=== PATIENT | female | born 1985 | race Caucasian/White ===

== ENCOUNTER 2017-11-19 10:51 | Outpatient (CLI) | payer BC ==
--- NOTE | 2017-11-19 13:05 | ULT ---
OB ULTRASOUND: HISTORY: Size and dates. FINDINGS: A single live intrauterine gestation is seen with measurements corresponding to an estimated gestatio nal age of 21 weeks 1 day and LEANDRA at 03/31/18. The estimated weight measures 412 gm or 15 ounce s. measurements are as follows: BPD 4.99 cm, 21 weeks 1 day HC 19.17 cm, 21 weeks 3 days AC 16.19 cm, 21 weeks 2 days FL 3.56 cm, 21 weeks 2 days. The heart rate measures 141 b.p.m. Placenta is anteriorly and to the right without placenta pr evia. FLACA measures 14.7 cm. A 3-vessel cord, cord insertion, kidneys, bladder, stomach, heart, lateral ventricles, cerebell um, spine, lips/nose, and upper and lower extremities are visualized. No definite anomalies ar e seen. IMPRESSION: Single live intrauterine of 21 weeks 1 day estimated gestational age and estimated date of delivery at 03/31/18. POS: MELANI
== END 2017-11-19 10:52 | disposition home or self-care (01) ==
LOC: ULT 10:51
PROVIDERS: ATTEND Family Medicine
DX: Z34.92 Encounter for supervision of normal pregnancy, unspecified, second trimester (principal); Z3A.21 21 weeks gestation of pregnancy
CPT/HCPCS: 76805

== ENCOUNTER 2018-03-22 09:58 | Inpatient (IN) | payer BC ==
[2018-03-22] MEDS: Lactated Ringer's 1,000 ML IV SCH ×3 (10:40→19:07)
[2018-03-22] MEDS ORDERED: Ibuprofen 800 MG TAB PO PRN (10:51)
[2018-03-22] MEDS ORDERED: Ondansetron HCl/PF 4 MG/2 ML Vial IVP PRN ×2 (10:51→22:19)
[2018-03-22] MEDS ORDERED: NS w/ Oxytocin 10 units 500 ML IV SCH ×2 (10:51)
[2018-03-22] MEDS ORDERED: HYDROcodone/Acetaminophen 5/325 mg Tablet PO PRN (10:51)
[2018-03-22] MEDS ORDERED: Lidocaine 1% (PF) 30 ML VIAL SC PRN (10:51)
[2018-03-22] MEDS ORDERED: Misoprostol 200 MCG TAB PR PRN (10:51)
[2018-03-22] MEDS ORDERED: NS / Oxytocin 40 units/1000ml 1,000 ML IV PRN (10:51)
[2018-03-22] MEDS ORDERED: Promethazine HCl 25 MG/ML VIAL IM PRN (10:51)
[2018-03-22] MEDS ORDERED: Methylergonovine 0.2 MG/ML VIAL IM PRN (10:51)
[2018-03-22] MEDS ORDERED: Acetaminophen 500 MG TAB PO PRN (10:51)
[2018-03-22] MEDS ORDERED: Acetaminophen/Codeine 30-300mg Tablet PO PRN ×2 (10:51→22:19)
[2018-03-22] MEDS ORDERED: Butorphanol Tartrate 1 MG/ML VIAL SLOW IVP PRN (10:51)
[2018-03-22] MEDS ORDERED: Penicillin G Potassium 5 MILL.UNITS in Sodium Chloride 0.9% 100 ML IVPB SCH (11:00)
[2018-03-22 11:08] LABS: Hemoglobin 12.6 g/dL (12.0-16.0); Mean Corpuscular HGB CONC 34.3 g/dL (32.0-36.0); Mean Corpuscular Hemoglobin 31.3 pg (27.0-31.0); Mean Corpuscular Volume 91.2 fl (81.0-99.0); Mean Platelet Volume 7.7 fL (7.4-10.4); Platelet Count 217 thou/uL (130-400); RBC Distribution Width 15.7 % (11.5-14.5); Red Blood Cell (RBC) Count 4.04 mill/uL (4.20-5.40); White Blood Cell (WBC) Count 6.9 thou/uL (4.8-10.8)
[2018-03-22 11:50] LABS: HBSAg Index 0.12 S/CO (0-0.99); Hep B Surf Ag Non-Reactive S/CO (NonReactive)
[2018-03-22 11:52] LABS: Syphilis Antibody Nonreactive (Nonreactive); Syphilis Antibody Index 0.03 S/CO (<1.00 Non-Reactive)
[2018-03-22 12:35] VITALS: BMI 29.5
[2018-03-22] MEDS ORDERED: Bupivacaine 0.75% 13.4 ML, fentaNYL Citrate/PF 400 MCG in Sodium Chloride 0.9% 78.6 ML EPIDURAL SCH (14:45)
[2018-03-22] MEDS ORDERED: DISCONTINUE ALL PREVIOUS NARCOTICS FS SCH (14:45)
[2018-03-22] MEDS: Penicillin G 2.5 MILL.units 2.5 MILL.UNITS in Premix Bag 1 BAG IVPB SCH ×3 (15:06→19:07)
[2018-03-22] MEDS ORDERED: Lactated Ringer's 500 ML IV PRN (18:59)
[2018-03-22] MEDS ORDERED: ePHEDrine/0.9% NaCl/PF SYRINGE 50 mg/10 ml SLOW IVP PRN (18:59)
[2018-03-22] MEDS ORDERED: Eucerin (Mineral Oil/Petrolatum,White) 30 gm Jar TOP PRN (18:59)
[2018-03-22] MEDS ORDERED: Naloxone HCl 0.4 mg/ml Vial IVP PRN ×2 (18:59)
[2018-03-22] MEDS ORDERED: Communication Order-Pharmacy FS SCH (19:00)
[2018-03-22] MEDS ORDERED: Fentanyl 4mcg/Marcaine 0.1% Cassette 100 ML EPIDURAL SCH (19:00)
[2018-03-22] MEDS ORDERED: Bupivacaine 0.25% HCL 30 ML VIAL ONE (20:00)
[2018-03-22] MEDS ORDERED: Bisacodyl 10 MG SUPP PR PRN (22:19)
[2018-03-22] MEDS ORDERED: Milk Of Magnesia 30 ML UDCUP PO PRN (22:19)
[2018-03-22] MEDS ORDERED: diphenhydrAMINE 25 MG CAP PO PRN (22:19)
[2018-03-22] MEDS ORDERED: Lanolin Ointment 7 GM TUBE TOP PRN (22:19)
[2018-03-22] MEDS ORDERED: Preparation H Ointment 28 GM TUBE PR PRN (22:19)
[2018-03-22] MEDS ORDERED: Benzocaine/Menthol 20-0.5% 60 ML CAN TOP PRN (22:19)
[2018-03-22] MEDS ORDERED: NS / Oxytocin 40 units/1000ml 1,000 ML IV SCH (22:19)
[2018-03-22] MEDS ORDERED: Ferrous Sulfate 325 MG TAB PO SCH (22:30)
[2018-03-22] MEDS ORDERED: Ibuprofen 800 MG TAB PO SCH (22:30)
[2018-03-22] MEDS ORDERED: Docusate Calcium (SURFAK) 240 MG CAP PO SCH (22:30)
[2018-03-22] MEDS: Docusate Calcium (SURFAK) 240 MG CAP PO SCH ×2 (23:53→23:54)
[2018-03-23] MEDS: HYDROcodone/Acetaminophen 5/325 mg Tablet PO PRN ×2 (02:52→10:19)
[2018-03-23 05:25] LABS: Mean Corpuscular HGB CONC 34.4 g/dL (32.0-36.0); Mean Corpuscular Hemoglobin 31.2 pg (27.0-31.0); Mean Corpuscular Volume 90.7 fl (81.0-99.0); Mean Platelet Volume 7.5 fL (7.4-10.4); Platelet Count 202 thou/uL (130-400); RBC Distribution Width 15.5 % (11.5-14.5); Red Blood Cell (RBC) Count 3.84 mill/uL (4.20-5.40); White Blood Cell (WBC) Count 9.7 thou/uL (4.8-10.8)
[2018-03-23] MEDS: Ibuprofen 800 MG TAB PO SCH ×2 (06:16→13:56)
[2018-03-23] MEDS: Ferrous Sulfate 325 MG TAB PO SCH ×2 (07:37→18:48)
[2018-03-23] MEDS: Docusate Calcium (SURFAK) 240 MG CAP PO SCH (09:00)
[2018-03-23] MEDS ORDERED: Prenatal Vitamin 1 TAB PO SCH (09:00)
[2018-03-23 20:50] VITALS: BP 129/62; TEMP 98.8
== END 2018-03-23 22:10 | disposition home or self-care (01) | DRG 775 ==
LOC: L&D 09:58 → 3SW 22:24
PROVIDERS: ADMIT Family Medicine; ATTEND Family Medicine
PROC: 10E0XZZ Delivery of Products of Conception, External Approach (ICD-10-PCS; principal; 2018-03-22)
DX: O34.211 Maternal care for low transverse scar from previous cesarean delivery (principal); Z37.0 Single live birth; Z3A.39 39 weeks gestation of pregnancy; O99.824 Streptococcus B carrier state complicating childbirth; O99.02 Anemia complicating childbirth
CPT/HCPCS: 36415; 51702; 76815; 85027; 85461; 86780; 86850; 86870; 86900; 86901; 87340; 90384; 96372; J2001; J2540; J3010; J7050; S0020